=== PATIENT | male | born 1975 | race Caucasian/White ===

== ENCOUNTER 2025-02-01 19:09 | Observation (INO) ==
[2025-02-01] MEDS ORDERED: ULTANE GAS IN ONE (20:20)
[2025-02-01] MEDS ORDERED: KETAMINE HCL ONE (20:20)
[2025-02-01 22:03] VITALS: BMI 21.5
--- NOTE | 2025-02-01 22:31 | DR.H&P ---
H&P History & Physical for Day of: H&P Date: 02/01/25 Chief Complaint Chief Complaint: Foreign body in rectum History of Present Illness History of Present Illness: 49-year-old male who placed a glass pipe of his rectum. Usually used to smoke methamphetamine. Has not been able to expel it. It has been there approximately 2 days. Patient denies intravenous drug abuse. He claims to be HIV negative and negative hepatitis as well. Past Medical History Additional Medical History: Narcotic dependence currently on buprenorphine Past Surgical History Surgical History: Joint Replacement and Ortho Surgery Social History Does patient currently use any type of tobacco product: Yes Type of Tobacco Use: Cigarettes Alcohol Use: None Drug Use: Methamphetamine Medications Home Medications: Home Medications Medication Instructions Recorded Confirmed Type buprenorphine HCl 8 mg sublingual 24 mg sublingual QDA Y PRN 02/01/25 02/01/25 History tablet gabapentin 300 mg capsule 300 mg PO QDAY 02/01/2507/22 History sildenafil 50 mg tablet PO 02/01/25 02/01/25 History Review of Systems Constitutional: See HPI Eyes: No Symptoms Reported ENT: No Symptoms Reported Respiratory: No Symptoms Reported Cardiovascular: No Symptoms Reported Gastrointestinal: See HPI Genitourinary: No Symptoms Reported Musculoskeletal: No Symptoms Reported Skin: No Symptoms Reported Neurological: No Symptoms Reported Physical Exam Vital Signs: Vital Signs Temperature 98.0 F Pulse Rate [Left Radial] 62 Respiratory Rate 20 Blood Pressure [Left Arm] 136/76 O2 Sat by Pulse Oximetry 98 Oriented: Normal, Time, Person and Place Eyes: Normal Ear: Normal Nose: Normal Throat: Normal Respiratory: Clear Throughout Cardiovascular: Normal : Normal Auscultation: Bowel Sounds: Normal Palpation: Normal Tenderness: Normal Skin: Normal Musculoskeletal: Normal Psychiatric: Normal Mood Description: Anxious Affect: Normal Speech Pattern: Clear and Appropriate Assessment/Plan (1) Foreign body anus/rectum: Status: Acute Plan: Plan rectal exam under anesthesia and removal of foreign body (2) Narcotic dependence: Status: Acute Plan: Continue buprenorphine Review H&P Reviewed: Yes Patient was examined?: Yes
[2025-02-01 23:16] LABS: CREATININE 0.91 mg/dL (0.70-1.30); eGFR NON BLACK RACES > 60 (>60)
[2025-02-01] MEDS: LR 1,000 ML IV 1,000 ML IV SCH (23:39)
[2025-02-02 01:29] LABS: MEAN PLATELET VOLUME 9.2 fL (7.4-11.0); RED CELL DISTRIBUTION WIDTH 13.4 % (11.6-16.5)
[2025-02-02] MEDS ORDERED: FENTANYL VIAL INJ 100 mcg ONE (09:41)
[2025-02-02] MEDS ORDERED: VERSED ONE (09:41)
[2025-02-02] MEDS: LR 1,000 ML IV 700 ML IV PRN (09:45)
[2025-02-02] MEDS ORDERED: ZEMURON 100 MG VIAL ONE (09:47)
[2025-02-02] MEDS ORDERED: ZOFRAN INJ 4 MG VIAL ONE (09:47)
[2025-02-02] MEDS ORDERED: BRIDION ONE (09:47)
[2025-02-02] MEDS ORDERED: TORADOL 30 MG VIAL ONE (09:47)
[2025-02-02] MEDS ORDERED: DIPRIVAN VIAL 20 ML ONE (09:47)
[2025-02-02] MEDS: VERSED IVP PRN (09:53)
[2025-02-02] MEDS: ANCEF VIAL 1 GRAM IV PRN (10:00)
[2025-02-02] MEDS: ANCEF VIAL 1 GRAM IVP ONE (10:00)
[2025-02-02] MEDS: ZOFRAN INJ 4 MG VIAL IVP PRN (10:00)
[2025-02-02] MEDS: DIPRIVAN VIAL 150 ML IVP PRN (10:08)
[2025-02-02] MEDS: FENTANYL VIAL INJ 100 mcg IVP PRN (10:08)
[2025-02-02] MEDS: ZEMURON 100 MG VIAL IVP PRN (10:08)
[2025-02-02] MEDS: KETAMINE HCL IV PRN (10:12)
[2025-02-02] MEDS: BRIDION IVP PRN (10:35)
[2025-02-02] MEDS: TORADOL 30 MG VIAL IVP PRN (10:37)
--- NOTE | 2025-02-02 10:43 | OR.IMMED ---
IMMEDIATE POST-OP NOTE Immediate Post-Op Note Date of surgery/procedure: 02/02/25 Pre-Op Diagnosis: foreign body in rectum Post-Op Diagnosis: same Procedure: rectal exam under anesthesia , rigid sigmoidoscopy Description of Procedure: dictated Surgeon/Receivable Manager: Julia Findings: foreign body greater than 20 cm in , could not br removed Estimated Blood Loss: none Complications: none Progress Notes: to floor , laxatives and if no expelled will need flexible colonoscopy to try and snare it or laparotomy and colotomy to remove
[2025-02-02] MEDS ORDERED: ZOFRAN INJ 4 MG VIAL IVP PRN (10:44)
[2025-02-02] MEDS ORDERED: DILAUDID INJ IVP PRN (10:44)
[2025-02-02] MEDS ORDERED: REGLAN INJ 10 MG VIAL IVP PRN (10:44)
[2025-02-02] MEDS ORDERED: BENADRYL INJ 50 MG VIAL IVP PRN (10:44)
[2025-02-02] MEDS ORDERED: BARHEMSYS INJ IVP PRN (10:44)
[2025-02-02 11:12] VITALS: O2SAT 100
[2025-02-02] MEDS: CITROMA PO ONE (11:30)
--- NOTE | 2025-02-02 11:53 | DR.OPNOTE ---
OP NOTE Pre-Op Diagnosis: Foreign body in rectum Post-Op Diagnosis: Same Procedure Date Date Of Procedure: 02/02/25 Procedure: PROCEDURE: Rectal exam anesthesia, rigid sigmoidoscopy. I could not remove the foreign body NARRATIVE: Patient taken to the operating suite and placed in the supine position. General endotracheal anesthesia induced. The patient was placed in lithotomy position and the perineum prepped and draped in sterile fashion. Ti meout for the procedure obtained. On rectal exam I could not feel the foreign body and placed a speculum and again I coild not feel or see the foreign body. Rigid sigmoidoscopy caried carried out and I could not see the specimen at 20 cm. On deep palpation I can feel the foreign body just at the very tip of my finger. Extracting this will be difficult going forward. Currently not causing him any problem. Patient extubated and taken to PACU in good condition. Type of Anesthesia: General Anesthetic w/ETT Findings: Foreign body was greater than 20 cm in and I could not reach it with a rigid sigmoidoscope or my finger but I could feel the end of it. Type of Fluids Used:: Lactated Ringers EBL: none Complications:: none Needle/Sponge Count:: correct Disposition/Condition: Pt. tolerated procedure without difficulty. Extubated in the OR and taken to PACU in stable condition.
[2025-02-02 15:52] VITALS: RESP 18
[2025-02-02 16:56] VITALS: BP 138/78; PULSE 78; TEMP 97.9
--- NOTE | 2025-02-02 17:56 | W.DIS.FURT ---
Summary of Discharge Discharge Summary of Date Date of Exam: 02/02/25 Admission Date Date of Admission: 02/01/25 Admission Diagnosis Hospital Course: This is a 49-year-old male who inserted a crack pipe in his rectum approximately 2 days prior to admission. He has been asymptomatic. No abdominal pain. The position of the pipe confirmed in his rectum by CT scan at the [facility] emergency room. He was transferred to [facility] for removal of foreign body. He was admitted and the next morning taken to the operating suite and under general anesthesia underwent rectal exam and we did rigid sigmoidoscopy. At 20 cm , the extent of the rigid scope I could not see the foreign body. With deep palpation from the rectum and abdomen I could feel the foreign body but I could not grab it. Patient will be given cathartics and discharged home.He will follow-up in 1 week. We will attempt bowel prep and colonoscopy with snare removal and if unsuccessful he may require laparotomy and colotomy to remove this foreign body. The patient understands this. I have given him my personal cell phone number to call me if he has experiences any problems or complications. Vital Signs: to 02/01/25 20:45 02/01/25 20:45 02/02/25 00:00 Temperature 98.0 F 97.8 F Pulse Rate Pulse Rate [Left Radial] 62 65 Respiratory Rate 20 18 Blood Pressure Blood Pressure [Left Arm] 136/76 131/78 O2 Sat by Pulse Oximetry 98 98 Oxygen Delivery Method Room Air Room Air Room Air 02/02/25 04:00 02/02/25 07:00 02/02/25 08:00 Temperature 98.0 F 97.7 F Pulse Rate Pulse Rate [Left Radial] 88 71 Respiratory Rate 18 18 Blood Pressure Blood Pressure [Left Arm] 156/94 129/85 O2 Sat by Pulse Oximetry 99 100 Oxygen Delivery Method Room Air Room Air Room Air 02/02/25 10:53 02/02/25 10:58 02/02/25 11:03 Temperature 97.0 F L Pulse Rate 71 63 57 L Pulse Rate [Left Radial] Respiratory Rate 16 16 16 Blood Pressure 153/90 134/81 144/83 Blood Pressure [Left Arm] O2 Sat by Pulse Oximetry 100 100 100 Oxygen Delivery Method Aerosol Face Tent Aerosol Face Tent Aerosol Face Tent 02/02/25 11:08 02/02/25 11:13 02/02/25 11:18 Temperature Pulse Rate 55 L 58 L 68 Pulse Rate [Left Radial] Respiratory Rate 17 17 16 Blood Pressure 140/84 147/81 135/82 Blood Pressure [Left Arm] O2 Sat by Pulse Oximetry 100 100 100 Oxygen Delivery Method Aerosol Face Tent Room Air Room Air 02/02/25 11:23 02/02/25 12:00 02/02/25 16:00 Temperature 98.0 F 97.9 F Pulse Rate 67 Pulse Rate [Left Radial] 74 78 Respiratory Rate 16 18 18 Blood Pressure 138/88 Blood Pressure [Left Arm] 140/86 138/78 O2 Sat by Pulse Oximetry 100 100 100 Oxygen Delivery Method Room Air Room Air Room Air Labs: Laboratory Last Values WBC 9.6 X10^3/uL (3.6-10.0) 02/02/25 00:56 RBC 4.07 X10^6/uL (4.7-6.0) L 02/02/25 00:56 Hgb 13.5 g/dL (13.5-18.0) 02/02/25 00:56 Hct 38.9 % (42.0-54.0) L 02/02/25 00:56 MCV 95.5 fL (80.0-100.0) 02/02/25 00:56 MCH 33.2 pg (27.0-34.0) 02/02/25 00:56 MCHC 34.8 g/dL (33.0-35.0) 02/02/25 00:56 RDW 13.4 % (11.6-16.5) 02/02/25 00:56 Plt Count 179 X10^3/uL (150.0-450.0) 02/02/25 00:56 MPV 9.2 fL (7.4-11.0) 02/02/25 00:56 Neut % (Auto) 55.1 % (42.0-75.0) 02/02/25 00:56 Lymph % (Auto) 32.4 % (21.0-51.0) 02/02/25 00:56 Callahan % (Auto) 9.2 % (0.0-13.0) 02/02/25 00:56 Eos % (Auto) 2.2 % (0.9-2.9) 02/02/25 00:56 Baso % (Auto) 1.1 % (0.2-1.0) H 02/02/25 00:56 Neut # (Auto) 5.3 x10^3/uL (2.2-4.8) H 02/02/25 00:56 Lymph # (Auto) 3.1 X10^3/uL (1.3-2.9) H 02/02/25 00:56 Callahan # (Auto) 0.9 x10^3/uL (0.3-0.8) H 02/02/25 00:56 Eos # (Auto) 0.2 x10^3/uL (0.0-0.2) 02/02/25 00:56 Baso # (Auto) 0.1 X10^3/uL (0.0-0.1) 02/02/25 00:56 Absolute Nucleated RBC 0.0 /100WBC 02/02/25 00:56 Sodium 142 mmol/L (136-145) 02/01/25 23:00 Corrected Sodium TNP 02/01/25 23:00 Potassium 4.0 mmol/L (3.5-5.1) 02/01/25 23:00 Chloride 104 mmol/L (98-107) 02/01/25 23:00 Carbon Dioxide 28.0 mmol/L (21-32) 02/01/25 23:00 BUN 23 mg/dL (7-18) H 02/01/25 23:00 Creatinine 0.91 mg/dL (0.70-1.30) 02/01/25 23:00 Est GFR (MDRD) Af Amer > 60 (>60) 02/01/25 23:00 Est GFR (MDRD) Non-Af > 60 (>60) 02/01/25 23:00 Glucose 106 mg/dL (65-99) H 02/01/25 23:00 Calcium 9.0 mg/dL (8.5-10.1) 02/01/25 23:00 Reason For Visit: FOREIGN OBJECT IN RECTUM Discharge Date Discharge Date: 02/02/25 Discharge Diagnosis All Active Problems (Updated 02/01/25 @ 22:30 by Ramirez Dumont) Narcotic dependence (Acute) Foreign body anus/rectum (Acute) Plan of Treatment: Continue with present treatment and follow up plan. Pt is to keep follow up appointment as instructed and take medications as ordered. Discharge Medications Discharge Medications: Penicillins Allergy (Unknown, Verified 02/01/25 23:02) CONTINUE taking the following medications buprenorphine HCl 8 mg sublingual tablet 24 mg sublingual QDAY PRN 02/01/25 [History] gabapentin 300 mg capsule 300 mg PO QDAY 02/01/25 [History] sildenafil 50 mg tablet 50 mg PO DAILY PRN 02/01/25 [History] Discharge Disposition Assessment: see hospital course Discharge Plan Discharge Plan Hospital Course: This is a 49-year-old male who inserted a crack pipe in his rectum approximately 2 days prior to admission. He has been asymptomatic. No abdominal pain. The position of the pipe confirmed in his rectum by CT scan at the [facility] emergency room. He was transferred to [facility] for removal of foreign body. He was admitted and the next morning taken to the operating suite and under general anesthesia underwent rectal exam and we did rigid sigmoidoscopy. At 20 cm , the extent of the rigid scope I could not see the foreign body. With deep palpation from the rectum and abdomen I could feel the foreign body but I could not grab it. Patient will be given cathartics and discharged home.He will follow-up in 1 week. We will attempt bowel prep and colonoscopy with snare removal and if unsuccessful he may require laparotomy and colotomy to remove this foreign body. The patient understands this. I have given him my personal cell phone number to call me if he has experiences any problems or complications. Patient Disposition: 01 HOME, SELF-CARE Condition: Stable Health Concerns: Post Hospitalization: new medications and changes needed to prevent readmission or further decline. Pt educated and given instructions on all concerns. Plan of Treatment: Continue with present treatment and follow up plan. Pt is to keep follow up appointment as instructed and take medications as ordered. Assessment: see hospital course Prescription drug monitoring program results: PDMP was not reviewed Prescriptions: Continued sildenafil 50 mg tablet 50 mg PO DAILY PRN gabapentin 300 mg capsule 300 mg PO QDAY buprenorphine HCl 8 mg tablet, sublingual 24 mg sublingual QDAY PRN Orders to Discharge Patient Discharge Orders: Discharge (Routine); Ordered 02/02/25 Ordered By: Ramirez Dumont Follow ups/Referrals Follow ups/Referrals: Ramirez Dumont [Primary Care Provider, Unknown] - 1 WEEK Instructions Instructions: Smoking Tobacco Information, Adult, Tobacco Use Disorder, Methamphetamine Use Disorder Activity Restrictions/Additional Instructions: Follow up with Dr. Dumnot in 1 week. If you begin to have abdominal or back pain, nausea/vomiting, rectal bleeding see Dr. Dumont or return to the emergency room immediately Stand Alone Forms: Excuse From Work, Find Help Web Site, Post Hospital Follow Up Care Print Language: SETSWANA
== END 2025-02-02 18:40 | disposition home or self-care (01) ==
LOC: MED/SURG → EDBD
PROVIDERS: ADMIT Surgery; ATTEND Surgery
DX: Z72.0 Tobacco use; T18.5XXA Foreign body in anus and rectum, initial encounter; F11.20 Opioid dependence, uncomplicated; W44.8XXA Other foreign body entering into or through a natural orifice, initial encounter; Z79.899 Other long term (current) drug therapy